=== PATIENT | male | born 1945 | race Caucasian/White ===

== ENCOUNTER 2024-12-20 08:19 | Observation (INO) ==
--- NOTE | 2024-11-14 15:39 | PAT Medication Instructions ---
Medication Instructions Date of Service November 14, 2024 Home Medications acetaminophen 650 mg tablet,extended release 650 mg PO UD PRN Pain albuterol sulfate 90 mcg/actuation aerosol inhaler 1 inh inhalation QID PRN Wheezing aspirin 81 mg tablet,delayed release 81 mg PO QAM atorvastatin 10 mg tablet 10 mg PO HS fluticasone 250 mcg-salmeterol 50 mcg/dose blistr powdr for inhalation (Advair Diskus) 1 inh inhalation BID lisinopril 40 mg tablet 40 mg PO QAM metoprolol succinate 25 mg tablet,extended release 24 hr 25 mg PO QAM tamsulosin 0.4 mg capsule 0.4 mg PO HS amlodipine 2.5 mg tablet 2.5 mg PO HS DO NOT take the morning of surgery lisinopril 40 mg tablet 40 mg PO QAM Take morning of surgery With a small sip of water, OTHERWISE NOTHING TO EAT OR DRINK AFTER MIDNIGHT: acetaminophen 650 mg tablet,extended release 650 mg PO UD PRN Pain (if needed) albuterol sulfate 90 mcg/actuation aerosol inhaler 1 inh inhalation QID PRN Wheezing (use if needed; please bring with you to hospital day of surgery if possible) aspirin 81 mg tablet,delayed release 81 mg PO QAM (unless surgeon directed otherwise) fluticasone 250 mcg-salmeterol 50 mcg/dose blistr powdr for inhalation (Advair Diskus) 1 inh inhalation BID metoprolol succinate 25 mg tablet,extended release 24 hr 25 mg PO QAM Take evening before surgery acetaminophen 650 mg tablet,extended release 650 mg PO UD PRN Pain (if needed) albuterol sulfate 90 mcg/actuation aerosol inhaler 1 inh inhalation QID PRN Wheezing (if needed) atorvastatin 10 mg tablet 10 mg PO HS fluticasone 250 mcg-salmeterol 50 mcg/dose blistr powdr for inhalation (Advair Diskus) 1 inh inhalation BID tamsulosin 0.4 mg capsule 0.4 mg PO HS amlodipine 2.5 mg tablet 2.5 mg PO HS Other Notes If you have any questions please call us at [phone] or [phone] or [phone] or [phone]
--- NOTE | 2024-11-29 14:46 | Anesthesiology Consultation ---
Date of Service November 29, 2024 Assessment & Plan (1) Encounter for pre-operative examination: - awaiting PCP (Dr. Mireles) response to optimization form regarding abnormal pre- op CXR. Patient and surgeon's office made aware. - cardiology clearance 11/28/24: "...nonobstructive coronary artery disease...denies any anginal complaints at this time...intermediate cardiovascular risk surgery...do not recommend further invasive or noninvasive cardiovascular testing or procedures prior to proceeding with planned shoulder surgery...well optimized from a cardiac standpoint to proceed with his scheduled procedure...recommend continuing beta silvana throughout the perioperative phase..." - hematology/oncology clearance 11/16/24: "...may proceed with shoulder surgery..." - Outpatient joint assessment: Patient is currently scheduled for inpatient pathway. If re-evaluated and patient/surgeon requests outpatient pathway, patient is not ideal candidate for outpatient joint program. Chart Review Chart Review: Pending: Refer to Additional Notes / Consult section and Patient seen in Pre Admission Testing Teaching & Discussion Pre-Anesthesia Teaching/Discussion Notes: Instructed NPO after midnight before surgery, except medications with 15 cc of water. Medication instructions provided according to the PAT guidelines. History Surgery Operation Date: 12/20/24 07:00 Proposed Procedures p Right Reverse Total Shoulder Arthroplasty - Mekhi Alarcon MD Height/Weight Height: 5 ft 7 in Weight: 79.5 kg Allergies Allergy/AdvReac Type Severity Reaction Status Date / Time No Known Allergies Allergy Verified 11/14/24 11:48 Medications Home Medications Medication Instructions Recorded Confirmed Last Taken acetaminophen 650 mg 650 mg PO UD PRN Pain 11/12/23 11/14/24 Unknown tablet,extended release albuterol sulfate 90 mcg/actuation 1 inh inhalation QID PRN Wheezing 11/12/23 11/14/24 Unknown aerosol inhaler aspirin 81 mg tablet,delayed 81 mg PO QAM 11/12/23 11/14/24 Unknown release atorvastatin 10 mg tablet 10 mg PO HS 11/12/23 11/14/24 Unknown fluticasone 250 mcg-salmeterol 50 1 inh inhalation BID 11/12/23 11/14/24 Unknown mcg/dose blistr powdr for inhalation (Advair Diskus) lisinopril 40 mg tablet 40 mg PO QAM 11/12/23 11/14/24 Unknown metoprolol succinate 25 mg 25 mg PO QAM 11/12/23 11/14/24 Unknown tablet,extended release 24 hr tamsulosin 0.4 mg capsule 0.4 mg PO HS 11/12/23 11/14/24 Unknown amlodipine 2.5 mg tablet 2.5 mg PO HS 11/14/24 11/14/24 Unknown Past Medical History Medical History (Updated 11/29/24 @ 15:35 by Vanesa Stevens PA-C) Arthritis Asthma BPH (benign prostatic hyperplasia) CAD (coronary artery disease) Stent x1 (2013) Chronic obstructive pulmonary disease controlled, stable per pt; denies rescue inhaler Hx of cancer of lung dx earlier in 2023, sx only Hyperlipidemia Hypertension Myocardial Infarction 2013 > stent Patient denies h/o stroke, seizures, heart failure, DM, blood clots/DVTs or blood transfusions. Exercise / Class Metabolic Activity II 4-5 Yardwork/Stairs/Walk up hill (denies chest discomfort or shortness of breath with one flight of stairs) Past Surgical History Surgical History History of arthroscopy right shoulder History of cataract surgery R/L History of colonoscopy History of heart artery stent Stent x1 (2013), ph gerry; f/u lorna, ph cardiology, gerry History of lung surgery 05/2024, partial lobectomy right side, [facility] hinds History of tooth extraction Past Anesthesia History No Hx of Anesthesia Complications and No Family Hx of Anesthesia Complications History of PONV No Hx of PONV and No Hx of Motion Sickness Social History Smoking Status: Former smoker Do You Dip or Chew Tobacco: No Smoking End Date: 25 years ago Hx Alcohol Use: Yes Alcohol type: beer alcohol intake frequency: a few times a week Hx Substance Use: No substance use type: does not use Review of Systems Patient denies chest pain, shortness of breath, dyspnea on exertion, snoring, witnessed apneas, reflux, fever, chills, cough, wheezing, or palpitations. Physical Exam Vital Signs Vitals BP 140/69 P 53 TEMP 98.4 SP02 96% on RA RESP 19 Physical Patient resting comfortably in chair in no acute distress, alert and oriented, responding appropriately throughout visit Full cervical extension range of motion without pain TMD 3.5 finger breadths Mallampati Score 3 Dentition: edentulous, full upper and lower dentures Lungs: normal respiratory effort. Good air movement, clear throughout to auscultation, no adventitious breath sounds Cardiac: regular rate and rhythm, no murmurs noted Carotid arteries: negative bruit bilat Lab Results Anesthesia Preop Results Results Anesthesia Widget: WBC 5.49 K/ul (4.8-10.8) 11/29/24 Hgb 15.0 g/dl (14.0-18.0) 11/29/24 Hct 43.5 % (42.0-52.0) 11/29/24 Plt 169 K/uL (130-400) 11/29/24 Na 141 mmol/L (136-145) 11/29/24 K 4.4 mmol/L (3.5-5.1) 11/29/24 Cl 105 mmol/L (98-107) 11/29/24 CO2 32 mmol/L (21-32) 11/29/24 BUN 14 mg/dl (6-23) 11/29/24 Creat 0.77 mg/dl (0.6-1.4) 11/29/24 Glucose Level 100 mg/dl (70-99(Fasting)) H 11/29/24 PT 10.8 Seconds (9.0-12.0) 11/29/24 PTT 25 Seconds (21-31) 11/29/24 INR 1.0 (0.9-1.1) 11/29/24 Urine Color Yellow 11/29/24 Urine Appearance Clear (Clear) 11/29/24 Urine pH 5.5 (4.5-7.5) 11/29/24 Urine Specific Jay Em 1.014 (1.000-1.030) 11/29/24 Urine Protein Negative (Negative) 11/29/24 Urine Glucose (UA) Negative (Negative) 11/29/24 Urine Ketones Negative (Negative) 11/29/24 Urine Blood Negative (Negative) 11/29/24 Urine Nitrite Negative (Negative) 11/29/24 Urine Bilirubin Negative (Negative) 11/29/24 Urine Urobilinogen Negative (Negative) 11/29/24 Urine Leukocyte Esterase Negative (Negative) 11/29/24 Blood Type A Positive 11/29/24 Antibody Screen NEGATIVE 11/29/24 Testing Electrocardiogram Date: 06/02/24 SR, rate 63 bpm Occasional PVC First degree AV block Chest X-Ray Date: 11/30/24 1. Minimal blunting of right costophrenic angle could represent pleural thickening / small effusion. Needs clinical correlation and ultrasound chest if indicated. 2. No evidence of infiltrates, consolidation or mass. Echocardiogram Date: 05/02/24 EF 60-65% Normal LV wall motion Grade I diastolic dysfunction Stress Test Date: 05/29/24 > 100% MPHR Positive for ischemia Subsequent 06/02/24 cardiac catheterization Cardiac Catheterization Date: 06/02/24 Minimal nonobstructive CAD Left main: no angiographically significant disease LAD: angiographically significant disease LCx: 30% lesion RCA: no angiographically significant disease Other Testing Thorax CT 11/13/24 Lesion of size 41 x 49 x 36 right lower lobe cavitary lesion with adacent focal pleural thickening. Reduce than prior. Mild right sided pleural effusion is seen. New than prior. A 14 mm sebaceous cyst in the left chest wall, benign.
--- NOTE | 2024-12-19 20:29 | History & Physical Report ---
Date of Service December 19, 2024 Assessment & Plan (1) Rotator cuff tear arthropathy of right shoulder: Plan: Advanced rotator cuff arthropathy [id number] subacromial and glenohumeral right shoulder. Treatment plan is to proceed with a reverse total shoulder arthroplasty. (2) Osteoarthritis of right glenohumeral joint: History of Present Illness Chief Complaint: Chronic right shoulder pain Primary Care Provider: Thor Mireles MD 79-year-old male with chronic progressive right shoulder pain due to rotator cuf f arthropathy and advanced glenohumeral osteoarthritis Patient denies headaches, sweats, fevers, chills, double vision, blurred vision, cough, sore throat, dysphagia, chest pain, sob, wheezing, n/v/d/c, numbness, tingling, fatigue, urinary symptoms, mood disorders. ROS positive for abnormal bruising but is on chronic aspirin, low back pain, lung CA Allergies Allergy/AdvReac Type Severity Reaction Status Date / Time No Known Allergies Allergy Verified 11/14/24 11:48 Home Medications Medication Instructions Recorded Confirmed Type acetaminophen 650 mg 650 mg PO UD PRN Pain 11/12/23 11/14/24 History tablet,extended release albuterol sulfate 90 mcg/actuation 1 inh inhalation QID PRN Wheezing 11/12/23 11/14/24 History aerosol inhaler aspirin 81 mg tablet,delayed 81 mg PO QAM 11/12/23 11/14/24 History release atorvastatin 10 mg tablet 10 mg PO HS 11/12/23 11/14/24 History fluticasone 250 mcg-salmeterol 50 1 inh inhalation BID 11/12/23 11/14/24 History mcg/dose blistr powdr for inhalation (Advair Diskus) lisinopril 40 mg tablet 40 mg PO QAM 11/12/23 11/14/24 History metoprolol succinate 25 mg 25 mg PO QAM 11/12/23 11/14/24 History tablet,extended release 24 hr tamsulosin 0.4 mg capsule 0.4 mg PO HS 11/12/23 11/14/24 History amlodipine 2.5 mg tablet 2.5 mg PO HS 11/14/24 11/14/24 History Past Med/Surg History Problem List (Updated 12/19/24 @ 20:34 by Mekhi Alarcon MD) 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 Beliefs That Will Affect Care: None Current Living Situation: Spouse Other Information That Helps Us Care for You: No Feels Safe at Home: Yes Safety Concerns: Feels Safe At This Time Assistive Devices: None Review of Systems All systems reviewed & are unremarkable except as noted in HPI & below Physical Exam Constitutional: WD/WN, vitals as above Respiratory: normal respiratory effort; no respiratory distress Cardiovascular: Rate/Rhythm: regular rate and regular rhythm Musculoskeletal: Right shoulder with atrophy abnormal rhythm crepitation with range of motion positive impingement signs limited range of motion with 40 degrees of external and internal rotation 80 degrees flexion 60 degrees abduction and 3+ 4-/5 abduction strength 4+/5 external rotation strength and normal neurological exam. Skin: no rashes, warm and dry Neurologic: normal touch/pain/proprioception Psychiatric: A+Ox3, euthymic affect Results & Data Diagnostic Findings Radiographs show [place] 4 end-stage rotator cuff arthropathy [id number] subacromial and glenohumeral.
[~2024-12-20 08:19] MED LIST: BUPIVACAINE 0.5 % 5 MG/1 ML PF 10ML VIAL ONE
[2024-12-20] MEDS ORDERED: ROCURONIUM BROMIDE 10 MG/ML 5 ML VIAL IV ONE (08:34)
[2024-12-20] MEDS ORDERED: PROPOFOL IV EMULSION 10 MG/ML 20 ML VIAL IV ONE (08:34)
[2024-12-20] MEDS ORDERED: LIDOCAINE 2% 20 MG/ML 5 ML SYR IV ONE (08:34)
[2024-12-20] MEDS ORDERED: MIDAZOLAM HCL 1 MG/ML 2ML VIAL ONE (08:34)
[2024-12-20] MEDS ORDERED: fentaNYL citrate PF 100 MCG/2 ML VIAL ONE (08:35)
[2024-12-20] MEDS: LR 15ML/HR IV SCH (08:59)
[2024-12-20] MEDS: LR 60ML/HR IV SCH (09:00)
[2024-12-20] MEDS: ACETAMINOPHEN 500 MG TAB PO SCH ×2 (09:01→15:54)
[2024-12-20] MEDS: METOCLOPRAMIDE HCL 10 MG TABLET PO SCH (09:01)
[2024-12-20] MEDS: FAMOTIDINE 20 MG TAB PO SCH (09:01)
[2024-12-20] MEDS: GABAPENTIN 300 MG CAP PO SCH (09:01)
[2024-12-20] MEDS: dexAMETHasone**PF** 10 MG/ML VIAL IV SCH (09:01)
[2024-12-20] MEDS: CeleBREX 200 MG CAP PO SCH (09:01)
[2024-12-20] MEDS ORDERED: fentaNYL citrate PF 100 MCG/2 ML VIAL IV PRN (09:21)
[2024-12-20] MEDS ORDERED: ONDANSETRON INJ 2 MG/ML 2 ML VIAL IV PRN ×2 (09:21→15:19)
[2024-12-20] MEDS ORDERED: ATROPINE SULFATE 0.1 MG/ML 10ML SYR IV PRN (09:21)
[2024-12-20] MEDS ORDERED: ePHEDrine sulfate 50 MG/ML AMP IV PRN (09:21)
[2024-12-20] MEDS: TRANEXAMIC ACID 1,000 MG **IV Pre-op IV SCH (10:07)
--- NOTE | 2024-12-20 10:14 | History & Physical Bridge Note ---
Date of Service December 20, 2024 History & Physical Bridge Note I have examined the patient, reviewed the History & Physical and in the interval since the performance of the History & Physical I have noted the following changes of clinical significance: no changes noted
[2024-12-20] MEDS ORDERED: GLYCOPYRROLATE 0.2 MG/ML VIAL ONE (10:29)
[2024-12-20] MEDS ORDERED: KETAMINE HCL 10MG/ML SYR ONE (10:33)
[2024-12-20] MEDS: ceFAZolin 2000MG 2,000 MG/15 ML SYR IV SCH ×2 (11:02→20:22)
[2024-12-20] MEDS ORDERED: ceFAZolin 330 MG/ML 1 GM VIAL ONE ×2 (11:03)
[2024-12-20] MEDS ORDERED: NOREPINEPHRINE BITARTRATE 1 MG/ML 4 ML VIAL IV ONE (11:04)
[2024-12-20] MEDS ORDERED: ONDANSETRON INJ 2 MG/ML 2 ML VIAL ONE (11:25)
[2024-12-20] MEDS ORDERED: DEXAMETHASONE SOD INJ 4 MG/ML VIAL ONE (11:25)
[2024-12-20] MEDS: TRANEXAMIC ACID 1,000 MG **IV Intra-op IV SCH (12:30)
[2024-12-20] MEDS ORDERED: SUGAMMADEX SODIUM 200 MG/2 ML VIAL IV ONE (12:51)
--- NOTE | 2024-12-20 13:20 | Operative Report ---
Post Operative Report Pre & Post Diagnosis Operation Date: 12/20/24 09:55 Pre-Op Diagnosis: Rotator cuff tear arthropathy of right shoulder, Osteoarthritis of right glenohumeral joint Post-Op Diagnosis: Rotator cuff tear arthropathy of right shoulder, Osteoarthritis of right glenohumeral joint with bone loss glenoid, subacute proximal biceps rupture. I identified the patient and participated in the time-out.: Yes Procedure Operation Date: 12/20/24 09:55 Actual Procedures p Right Reverse Total Shoulder Arthroplasty, biceps tenodesis. - Mekhi bassett MD Surgeon Mekhi Alarcon MD Mail Agent Bernard HILARIO Estimated Blood Loss 45 Findings Consistent with Post-Op Diagnosis Specimens Humeral head cut Drains 2 Hemovac Anesthesia Type General Regional Complications none Disposition Disposition: Recovery Room Indications 79-year-old male with chronic right shoulder pain history of surgery years ago with rotator cuff arthropathy chronic rotator cuff tear [place] stage IV [id number] glenohumeral joint and subacromial space. Description of Procedure The patient was taken to the operating room and anesthetized under regional block and general anesthetic. The patient was positioned on the operating table in a 30 beach chair position with a towel roll under the medial border of the right scapula. The arm was draped free to be able to manipulate the shoulder as needed. The right upper extremity was prepped and draped in usual sterile fashion. Exam demonstrated a transverse scar over the AC joint acromion area. Generalized subdeltoid swelling cyst with chronic bursitis. Crepitation with range of motion. Forward flexion 120 degrees, abduction to 90 degrees and external rotation 45 degrees. An anterior deltopectoral approach was performed. A longitudinal incision was made in the deltopectoral interval. The skin was incised sharply. Subcutaneous flaps were elevated off the fascia. The cephalic vein was dissected out and retracted lateral with the deltoid. The clavipectoral fascia was divided at the lateral margin of the conjoined tendon and extended up to the CA ligament. The following findings were noted: The subscapularis was thin with tendinopathy but still was intact but there was some undersurface upper aspect tearing. The supraspinatus ,infraspinatus were torn and retracted and the teres minor was intact. The upper centimeter of the pectoralis was released for inferior exposure. The biceps tendon findings demonstrated there was some hemorrhage in the biceps sheath with a markedly inflamed biceps sheath in the bulbous and of the biceps which was torn and there was still some tendon above the level of the pectoralis insertion consistent with a subacute biceps rupture. The inflamed tendon sheath was resected around the biceps and an Allis clamp was placed and it was retracted superiorly and then the biceps tendon was tenodesed to the pectoralis tendon with #2 FiberWire using [id number] and whipstitch type suture repair repairing this to the pectoralis tendon. The excess superior biceps was resected. The subscapularis tendon was taken down off the lesser tuberosity using a subperiosteal dissection. A #1 Vicryl traction suture was placed into the free end of the subscapularis tendon and capsule. The subscapular muscle fibers were split longitudinally at the level of the circumflex vessels. The circumflex vessels were identified and tied off with silk ties and divided laterally. A Kitner elevator was used to free up the inferior fibers of the subscapularis off of the capsule. The axillary nerve was identified with a tug test and protected with a blunt Cady retractor between the nerve and the capsule. The subscapularis tendon was then taken down off of the lesser tuberosity subperiosteally and subperiosteal dissection was performed along the neck of the humerus as the arm is gradually actually rotated exposing the humeral head. Retractors were readjusted and the inferior osteophytes were all resected using an artist chisel. A Velázquez elevator was used to assist in releasing the capsule of the neck of the humerus. The capsule was divided with Ji scissors down to the glenoid released off the anterior glenoid and the rotator interval was released to meet the capsular release and a 360 release of the subscapularis was accomplished. A Fukuda retractor was placed into the joint retracting the humeral head posterior. Glenoid findings demonstrated widened glenoid with osteophytes circumferentially with glenoid bone loss with eburnated bone and multiple subchondral cysts consistent with degenerative arthritis. There is posterior superior bone loss noted as noted on CT scan.. The labrum remnants were resected.. an anterior-inferior and posterior inferior capsular release were performed with electrocautery and a Velázquez elevator on bone with the axillary nerve protected inferiorly by the retractor. Attention was then taken to the humeral preparation. The cutting guide was placed into the humeral head. It was positioned at 20 of retroversion. Oscillating saw was used to resect the humeral head giving the cut above the level of the posterior rotator cuff insertion site. The humerus was then prepared for the stem. I used the ascend flex stem from [employer]. The sizing broaches were used followed by trial broaches up to a size 7B long which had the appropriate fit and fill. The appropriate sized cut protector was placed. The humerus was then retracted posterior to the glenoid. The glenoid was sized for a 29 baseplate and based on blueprint preoperative templating and custom guide this was planned for a full wedge 15 degree angle implant. The custom guide was inserted in appropriate position and then the central guidepin was placed with good purchase in the bone. The small surface reamer utilized followed by the 15 degree angled reamer positioned with the maximum wedge being placed at the 11 o'clock position. The reamer for the central boss was used. The trial weight guide was placed with satisfactory fit and the central drill hole was placed for the screw. The depth gauge was used to measure for the central screw. The [employer], Tornier 29 mm full wedge 15 degree baseplate with a 6.5 x 35 mm central screw was screwed into position. The base plate was transfixed with a compression screw near the wedge and then 3 other locking screws. Bone was very hard and excellent fixation was obtained. The fan reamer was used for the 42 millimeter glenoid sphere. After irrigation the centered 42 mm standard glenoid sphere was impacted onto the baseplate and the screw was tightened. Attention was taken back to the humerus. The cut protector was removed and the + high offset humeral tray trial was assembled to the trial stem rotated appropriately to get bony coverage and then screwed in position. A trial reduction was performed. A +6/42 reversed trial insert demonstrated good stability and no shuck. The trials were removed. 3 drill holes are made into the harder bone in the bicipital groove area and 3 #5 FiberWire sutures were placed transosseously. The canal was irrigated with pulsatile lavage saline solution. The final component was assembled. The final component was ascend Flex 7B long standing assemble 2+0 high offset tray with a 42 mm +6 mm reversed polyethylene insert. This was then impacted into the humerus with a tight press-fit. It was reduced to the glenoid sphere. Stability was verified. Subscapularis was repaired with the #5 FiberWire sutures using Shay-Corona suture technique. Lateral row soft tissue repair was performed with #2 FiberWire [id number] sutures. The pectoralis was repaired with #2 FiberWire [id number] sutures reinforcing the biceps tendon tenodesis. The arm was taken through a range of motion which demonstrated 135 degrees forward flexion and 90 degrees abduction and 60 degrees external rotation. The implant was stable through the range of motion tested. The wound was copiously irrigated. 2 Hemovac drains were placed. The deltopectoral interval was closed with [id number] #1 Vicryl sutures. The subcutaneous tissues were closed with 2-0 Vicryl sutures. The skin was closed with surgical kelli. Silverlon sterile dressing was applied and a shoulder immobilizer. Bernard HILARIO, my physician corporate law assistant assisted in the procedure to the entire procedure including patient positioning arm positioning prepping and draping soft tissue retraction instrument management suture management and performed the subcutaneous and skin closure and will participate in the postoperative care of the patient. I attest to the content of the Intraoperative Record and any orders documented therein. Any exceptions are noted below.
--- NOTE | 2024-12-20 13:38 | XRay Report ---
XR shoulder RT min 2V routine CLINICAL HISTORY: Post shoulder surgery COMPARISON: None FINDINGS: Right shoulder prosthesis shows no hardware complication. There is expected soft tissue ga s. Skin kelli are present. Postoperative drain is present. IMPRESSION: Unremarkable postoperative exam. ACT 112: Negative or not required by law. Electronically signed by: Syed Townsend M.D. 12/20/2024 1:37 PM
[2024-12-20] MEDS ORDERED: ALUMINUM/MAGNESIUM SUSP 30 ML UDC PO PRN (15:19)
[2024-12-20] MEDS ORDERED: ALBUTEROL HFA 8 GM INHALER INH PRN (15:19)
[2024-12-20] MEDS ORDERED: MAGNESIUM HYDROXIDE SUSP 30 ML UDC PO PRN (15:19)
[2024-12-20] MEDS ORDERED: METOCLOPRAMIDE HCL INJ 5 MG/ML 2 ML VIAL IV PRN (15:19)
[2024-12-20] MEDS ORDERED: bisacodyL 10 MG SUPP PR PRN (15:19)
[2024-12-20] MEDS ORDERED: NALOXONE HCL 0.4 MG/1 ML VIAL/CARP IV PRN (15:19)
[2024-12-20] MEDS ORDERED: HYDROmorphone INJ 0.5 MG/0.5 ML SYR IV PRN (15:19)
[2024-12-20] MEDS ORDERED: KETOROLAC TROMETHAMINE 15 MG/ML VIAL IV PRN (15:19)
[2024-12-20] MEDS: BUPIVACAINE LIPOSOME 1.3% 133 MG/10 ML VIAL ONE (15:22)
--- NOTE | 2024-12-20 15:31 | Anesthesiology Progress Note ---
Date of Service December 20, 2024 Anesthesia Post Procedure Vital Signs Vital Signs: Temp Pulse Pulse Pulse Resp BP Pulse Ox 12/20/24 15:00 36.6 C 57 L 17 143/74 H 93 12/20/24 14:59 68 12/20/24 14:30 65 16 124/86 92 12/20/24 14:20 66 15 128/67 92 12/20/24 14:10 64 14 124/62 92 12/20/24 14:00 36.4 C L 65 15 127/66 96 12/20/24 13:50 65 15 127/66 96 12/20/24 13:40 66 18 132/69 97 12/20/24 13:30 67 15 134/63 97 12/20/24 13:22 36.1 C L 67 20 124/60 99 12/20/24 08:55 12/20/24 08:40 36.5 C 58 L 20 145/72 H 98 O2 Del Method O2 Flow Rate 12/20/24 15:00 Room Air 12/20/24 14:59 12/20/24 14:30 Room Air 12/20/24 14:20 Room Air 12/20/24 14:10 Room Air 12/20/24 14:00 Room Air 12/20/24 13:50 Oxymask 3 12/20/24 13:40 Oxymask 3 12/20/24 13:30 Oxymask 7 12/20/24 13:22 Oxymask 7 12/20/24 08:55 Room Air 12/20/24 08:40 Room Air Pain Intensity Right Shoulder: Pain Intensity: 5 Transfer of Care Handoff Completed per policy Notes Mental Status: alert / awake / arousable Patient Amnestic to Procedure: Yes Nausea / Vomiting: adequately controlled Pain: adequately controlled Airway Patency, RR, SpO2: stable & adequate BP & HR: stable & adequate and see Notes below Hydration State: stable & adequate Anesthetic Complications: no major complications apparent Notes: pt with high PVC burden and asymptomatic bradycardia ~35 pre and intraop. resolved with treatment. will observe in tele unit post op
--- NOTE | 2024-12-20 15:32 | Hospitalist Consultation ---
Date of Consultation December 20, 2024 Assessment & Plan (1) Osteoarthritis of right glenohumeral joint: Jani Spence is a 79-year-old male with a past medical history of CAD with PCI, hyperlipidemia, hypertension who underwent scheduled right reverse total shoulder arthroplasty on 12/20/2024 for rotator cuff tear. We have been consulted for postoperative medication management. S/p reverse shoulder arthroplasty - No surgical complications Activity, pain management per primary team Continue incentive spirometer everyevery 4 hours Some lip numbness postoperatively. Right hand is with sensation and rn office strength intact although qualitatively decreased compared to the left, is recovering as would typically expect postoperatively. No other focal neurologic deficits. Speech is intact. Bradycardia, Bigeminy - Asymptomatic. No chest pain. Asymptomatic. Tele w/ ermaeminy reporting a rate of 80, pulse rate 40. Normotensive and no lightheadedness/dizziness/chest pain Cath 05/2024 without obstructive coronary disease. No chest pain and no clinical signs of preoperative ACS ? Post anesthesia. Continue to monitor. If symptomatic hypotension develops atropine 0.5 mg x 1 and notify provider for reassessment -Did not have any intraoperative hypotension Troponin x 1 ordered. Serial EKG ordered. Optimize magnesium 2.0, potassium 4.0. BMP/magnesium ordered - Resume metoprolol in a.m. versus dose reduce/hold if needed based on rate trend. Rate is improving on reassessment in the later evening CAD, history of PCI Last ECHO EF 60 to 65% History of PCI 2013 to LAD Cardiac cath 2023 with minimal nonobstructive coronary disease Continue aspirin, atorvastatin. Beta-silvana as noted Resume lisinopril 12/21 No hypoxia, no dyspnea, no JVD at the bedside Hypertension Continue lisinopril Metoprolol as noted BPH Continue Flomax. Bladder scan every shift if no/reduced urinary output COPD, history of lung cancer Lung cancer s/p wedge resection with no known residual disease Continue home inhalers No wheezing at bedside evaluation Continue incentive spirometer to minimize atelectasis. DVT prophylaxis: On aspirin twice daily per primary team. (2) CAD (coronary artery disease): (3) BPH (benign prostatic hyperplasia): (4) Hypertension: (5) Chronic obstructive pulmonary disease: History of Present Illness Attending Physician: Mekhi Alarcon MD History of Present Illness 79-year-old male with a history of CAD and PCI in 2013, lung cancer s/p wedge resection 1 year ago, COPD on Advair who presented for scheduled right total shoulder arthroplasty. Intraoperatively he had bigeminy and bradycardia. We have been consulted for postoperative management and for evaluation of bradycardia. At bedside he reports he has no chest pain, chest pressure, lightheadedness, dizziness. No dyspnea. No cough. His lips and tongue are slightly numb since waking up from anesthesia. His right hand and arm are numb however he notes that since arriving to the floor he has had improving strength and sensation of the right upper extremity. Drain is in place. Blood pressure is normal Reports his metoprolol was recently dose decreased for a slow heart rate, he has never been symptomatic with this and his blood pressures have never been low Medical History: Reviewed Medications: Reviewed Surgical History: Reviewed Family history: Reviewed Allergies: Reviewed Social History: Reviewed Code Status: Full Allergies Allergy/AdvReac Type Severity Reaction Status Date / Time No Known Allergies Allergy Verified 12/20/24 08:40 Home Medications Medication Instructions Recorded Confirmed Type acetaminophen 650 mg 650 mg PO UD PRN Pain 11/12/23 12/20/24 History tablet,extended release albuterol sulfate 90 mcg/actuation 1 inh inhalation QID PRN Wheezing 11/12/23 12/20/24 History aerosol inhaler aspirin 81 mg tablet,delayed 81 mg PO QAM 11/12/23 12/20/24 History release atorvastatin 10 mg tablet 10 mg PO HS 11/12/23 12/20/24 History fluticasone 250 mcg-salmeterol 50 1 inh inhalation BID 11/12/23 12/20/24 History mcg/dose blistr powdr for inhalation (Advair Diskus) lisinopril 40 mg tablet 40 mg PO QAM 11/12/23 12/20/24 History metoprolol succinate 25 mg 25 mg PO QAM 11/12/23 12/20/24 History tablet,extended release 24 hr tamsulosin 0.4 mg capsule 0.4 mg PO HS 11/12/23 12/20/24 History amlodipine 2.5 mg tablet 2.5 mg PO HS 11/14/24 12/20/24 History acetaminophen 500 mg tablet 1,000 mg (2 x 500 mg) PO Q8H #90 12/20/24 Rx (Tylenol Extra Strength) tabs aspirin 81 mg tablet,delayed 81 mg PO BID #60 tabs 12/20/24 Rx release cefadroxil 500 mg capsule 500 mg PO Q12H #28 caps 12/20/24 Rx celecoxib 200 mg capsule (Celebrex) 200 mg PO Q12H #60 caps 12/20/24 Rx oxycodone 5 mg tablet 5 mg PO Q4H PRN pain #20 tabs 12/20/24 Rx Patient History Medical History Hx of cancer of lung dx earlier in 2023, sx only CAD (coronary artery disease) Stent x1 (2013) Arthritis BPH (benign prostatic hyperplasia) Myocardial Infarction 2013 > stent Hypertension Hyperlipidemia Chronic obstructive pulmonary disease controlled, stable per pt; denies rescue inhaler Asthma Surgical History History of lung surgery 05/2024, partial lobectomy right side, [facility] hinds History of cataract surgery R/L History of colonoscopy History of tooth extraction History of arthroscopy right shoulder History of heart artery stent Stent x1 (2013), ph gerry; [facility] Social History Smoking Status: Former smoker Smoking End Date: 25 years ago; Second Hand Exposure: No; Do You Dip or Chew Tobacco: No; Tobacco Cessation Education Requested by Patient: No Hx Alcohol Use: Yes Alcohol type: beer Hx Substance Use: No Preferred Language: French Communication Ability: Effective Assisted Living Director Required: No Beliefs That Will Affect Care: None Current Living Situation: Spouse Other Information That Helps Us Care for You: No Feels Safe at Home: Yes Safety Concerns: Feels Safe At This Time Assistive Devices: None Physical Exam Physical Exam: General: A&Ox3. NAD. Cooperative. HEENT: Atraumatic, normocephalic. Somewhat soft speech, endorses numbness/tingling of the lips and tongue since waking up from anesthesia. vision and hearing grossly intact. Pulm: CTAB A&P. -wheezes, -rales, -rhonchi. Symmetrical chest rise. No increased work of breathing. No respiratory distress. Cardiac: Bradycardic with chronotropic response, soft SM radial pulses intact and symmetrical. Abdominal: Nontender, nondistended, soft. BS present. Extremities: Right shoulder in postop dressing, drain in place with sanguinous material. Hydrochloric Manufacturing Supervisor strength is slightly weaker compared to the left, sensation slightly decreased compared to the left but intact and improving postop. Radial pulse intact bilaterally Results & Data Results & Data Vital Signs (Past 12 Hours) Vital Signs Temp Pulse Pulse Pulse Resp BP Pulse Ox 12/20/24 15:00 36.6 C 57 L 17 143/74 H 93 12/20/24 14:59 68 12/20/24 14:30 65 16 124/86 92 12/20/24 14:20 66 15 128/67 92 12/20/24 14:10 64 14 124/62 92 12/20/24 14:00 36.4 C L 65 15 127/66 96 12/20/24 13:50 65 15 127/66 96 12/20/24 13:40 66 18 132/69 97 12/20/24 13:30 67 15 134/63 97 12/20/24 13:22 36.1 C L 67 20 124/60 99 12/20/24 08:55 12/20/24 08:40 36.5 C 58 L 20 145/72 H 98 O2 Del Method O2 Flow Rate 12/20/24 15:00 Room Air 12/20/24 14:59 12/20/24 14:30 Room Air 12/20/24 14:20 Room Air 12/20/24 14:10 Room Air 12/20/24 14:00 Room Air 12/20/24 13:50 Oxymask 3 12/20/24 13:40 Oxymask 3 12/20/24 13:30 Oxymask 7 12/20/24 13:22 Oxymask 7 12/20/24 08:55 Room Air 12/20/24 08:40 Room Air PG Care Time/CCT Total # of Minutes Spent Total Time Spent with Patient: Total time spent is greater than 50% in coordination of care (as documented) at patient's floor/unit and/or counseling patient: Coding Level of Care Code 31707 IN/OBS CONSULT LVL 4,60M Diagnoses Osteoarthritis of right glenohumeral joint M19.011 CAD (coronary artery disease) I25.10 BPH (benign prostatic hyperplasia) N40.0 Hypertension I10 Chronic obstructive pulmonary disease J44.9
[2024-12-20 17:37] LABS: BUN Creatinine Ratio 28.2 (10-20); Calcium 8.2 mg/dl (8.6-10.3); Creatinine Clr Calc Pharmacy 45.1 ml/min; Magnesium 1.6 mg/dl (1.7-2.4); Potassium 4.2 mmol/L (3.5-5.1)
[2024-12-20 17:44] LABS: Troponin I High Sensitivity 7.9 pg/ml (0-20)
[2024-12-20] MEDS: TRANEXAMIC ACID / 0.7% NACL 1,000 MG/100 ML BAG IV SCH (19:46)
[2024-12-20] MEDS: MAGNESIUM SULFATE / D5W 1 GM/100 ML BAG IV SCH (20:22)
[2024-12-20] MEDS: ASPIRIN 81 MG ECTAB PO SCH (21:47)
[2024-12-20] MEDS: SENNA 8.6 MG TAB PO SCH (21:47)
[2024-12-20] MEDS: TAMSULOSIN HCL 0.4 MG CAP PO SCH (21:47)
[2024-12-20] MEDS: ATORVASTATIN 10 MG TAB PO SCH (21:47)
[2024-12-20] MEDS: DOCUSATE SODIUM 100 MG CAP PO SCH (21:47)
[2024-12-20] MEDS: amLODIPine BESYLATE 5 MG TAB PO SCH (21:48)
[2024-12-21 06:56] LABS: Basophils # (auto) 0.01 K/uL (0.00-0.20); Basophils % (auto) 0.1 %; Hematocrit (blood only) 37.1 % (42.0-52.0); Hemoglobin 12.7 g/dl (14.0-18.0); Immature Granulocytes # (auto) 0.03 K/uL (0.01-0.20); Immature Granulocytes % (auto) 0.3 %; Lymphocytes # (auto) 1.02 K/uL (1.20-3.40); Mean Corpuscular Hemoglobin 31.4 pg (25.0-34.0); Mean Corpuscular Hgb Conc 34.2 g/dL (32.0-36.0); Mean Corpuscular Volume 91.8 fL (80.0-100.0); Mean Platelet Volume 10.9 fL (9.4-12.4); Monocytes # (auto) 0.59 K/uL (0.11-0.59); Monocytes % (auto) 5.8 %; Neutrophils # (auto) 8.54 K/uL (1.40-6.50); Neutrophils % (auto) 83.8 %; Platelet Count 177 K/uL (130-400); RDW Coefficient of Variation 12.2 % (11.5-14.5); RDW Standard Deviation 40.9 fL (36.4-46.3); Red Blood Count 4.04 M/uL (4.70-6.10); White Blood Count 10.19 K/ul (4.8-10.8)
[2024-12-21 07:16] LABS: BUN Creatinine Ratio 22.3 (10-20); Calcium 8.5 mg/dl (8.6-10.3); Creatinine Clr Calc Pharmacy 34.1 ml/min; Potassium 4.2 mmol/L (3.5-5.1)
--- NOTE | 2024-12-21 08:07 | Orthopedic Progress Note ---
Date of Service December 21, 2024 Assessment & Plan (1) Rotator cuff tear arthropathy of right shoulder: Plan: Postop day 1 reverse shoulder replacement. Some heart rhythm issues but appears to be stable. Will have medicine weigh in on heart rhythm issue. Has some mild hypertension this morning. From orthopedic standpoint he can be discharged home and will have him do some home exercises for a few weeks and then start formal physical therapy afterwards. Patient needs to see OT PT prior to discharge. Advanced rotator cuff arthropathy [id number] subacromial and glenohumeral right shoulder. Treatment plan is to proceed with a reverse total shoulder ar throplasty. (2) Osteoarthritis of right glenohumeral joint: Admission and Anticipated Discharge Date Admission Date: December 20, 2024 Subjective Feels well no complaints no chest pain shortness of breath. Review of Systems Review of Systems: No chest pain shortness of breath. Physical Exam Musculoskeletal: Dressing dry and intact. Circulation sensorimotor exam intact. Shoulder stable to exam. Results & Data Vital Signs (Past 12 Hours) Vital Signs Temp Pulse Pulse Resp BP Pulse Ox O2 Del Method 12/21/24 07:34 36.7 C 50 L 18 161/71 H 95 Room Air 12/21/24 04:34 87 12/21/24 03:32 36.6 C 44 L 18 148/68 H 92 Room Air 12/21/24 00:14 Room Air 12/20/24 22:19 83 12/20/24 22:11 36.8 C 95 H 18 157/76 H 93 Room Air Laboratory Results Stable labs troponin normal Diagnostic Findings Well aligned reverse shoulder replacement right shoulder
[2024-12-21] MEDS: MULTIVITAMIN TAB PO SCH (08:27)
[2024-12-21] MEDS: METOPROLOL SUCC 25MG EXT REL TAB PO SCH (08:28)
[2024-12-21] MEDS: lisinopril 40 MG TAB PO SCH (08:28)
[2024-12-21] MEDS: MAGNESIUM OXIDE 400 MG TAB PO SCH (08:30)
[2024-12-21] MEDS: FLUTICASONE/VILANTEROL 100/25MCG 14 PUFFS/INHALER INH SCH (08:32)
[2024-12-21] MEDS: dexAMETHasone 10 MG in SYRINGE 0 ML IV SCH (10:32)
[2024-12-21] MEDS: METOPROLOL SUCC 25MG EXT REL TAB PO ONE (10:42)
--- NOTE | 2024-12-21 12:11 | Electrocardiogram Report ---
Test Reason : Blood Pressure : */* mmHG Vent. Rate : 72 BPM Atrial Rate : 72 BPM P-R Int : 220 ms QRS Dur : 86 ms QT Int : 386 ms P-R-T Axes : 19 -6 -82 degrees QTcB Int : 422 ms Sinus rhythm with sinus arrhythmia with 1st degree A-V block with occasional Premature ventricular co mplexes Nonspecific ST and T wave abnormality Abnormal ECG When compared with ECG of 19-Nov-2023 14:54, Premature ventricular complexes are now Present Premature atrial complexes are no longer Present Nonspecific T wave abnormality now evident in Lateral leads Confirmed by Thomas Garner ([id number]) on 12/21/2024 12:11:16 PM Referred By: Mekhi Alarcon Confirmed By: Thomas Garner
--- NOTE | 2024-12-21 15:35 | Hospitalist Progress Note ---
Date of Service December 21, 2024 Assessment & Plan (1) Frequent PVCs: (2) BPH (benign prostatic hyperplasia): (3) Osteoarthritis of right glenohumeral joint: (4) Hypertension: Plan Jani Spence is a 79-year-old male with a past medical history of CAD with LAD stent, HLD, HTN, COPD, BPH who underwent right reverse total shoulder arthroplasty on 12/20/2024. Hospitalist service consulted for postoperative medical management but pt also having bradycardia. #Bradycardia/Bigeminy- Asymptomatic. Tele w/ ermaeminy reporting a rate of 80, pulse rate 40 on Dynamap during routine vitals. Normotensive and no lightheadedness/dizziness/chest pain. His true HR is normal and there are no concerns. ECG with PVCs, normal rate, no ischemic changes, troponin neg x 1. -cancelled Cardiology consult after discussion with Cardiology-no concerns -pt is supposed to be Toprol XL 12.5mg po daily-changed med for here and for home med list #CAD, history of PCINo acute issues. Troponin normal. Last ECHO EF 60 to 65% History of stent 2013 to LAD Cardiac cath 2023 with minimal nonobstructive coronary disease Continue aspirin, atorvastatin. Beta-silvana as noted continue lisinopril #Hypertension-BPs controlled Continue lisinopril Metoprolol as noted #BPH-having urinary retention requiring 2 straight caths overnight. Not taking opioids, could be from anesthesia Continue Flomax -if continues to have PVR>400mL, would place Jones x 1 week to go home with and f/u with Urology #COPD, history of lung cancer Lung cancer s/p wedge resection with no known residual disease Continue home inhalers No wheezing at bedside evaluation Continue incentive spirometer to minimize atelectasis. #S/p reverse shoulder arthroplasty - No surgical complications Activity, pain management per primary team DVT prophylaxis: On aspirin twice daily per primary team. Dispo-medically stable for discharge. Hospitalist service will sign off Admission and Anticipated Discharge Date Admission Date: December 20, 2024 Subjective Pt feels well. Was straight cathed overnight x 2 but is voiding today, repeat PVR bladder scan pending. Denies lightheadedness, CP, SOB. Pain in shoulder is controlled, not even taking tylenol. Daughters at bedside note he is a bit confused today-seeing people and things that aren't there. Pt oriented for me. I discussed his care with Cardiology who reviewed tele and has frequent PVCs, bigeminy and rates 70-80s. HR in the 40s on Dynamap not picking up PVCs. Physical Exam Constitutional: WD/WN, vitals as above Respiratory: normal respiratory effort, lungs clear to auscultation Cardiovascular: RRR, no murmur, no edema Musculoskeletal: Extremities: + extremities abnormal to inspection (RUE in sling) Psychiatric: A+Ox3, euthymic affect Results & Data Results & Data Vital Signs (Past 12 Hours) Vital Signs Temp Pulse Pulse Pulse Resp BP Pulse Ox 12/21/24 13:29 90 12/21/24 10:40 75 130/75 92 12/21/24 08:25 36.4 C L 46 L 42 L 16 162/66 H 93 12/21/24 07:34 36.7 C 50 L 18 161/71 H 95 12/21/24 04:34 87 12/21/24 03:32 36.6 C 44 L 18 148/68 H 92 O2 Del Method 12/21/24 13:29 12/21/24 10:40 Room Air 12/21/24 08:25 Room Air 12/21/24 07:34 Room Air 12/21/24 04:34 12/21/24 03:32 Room Air Laboratory Results CBC, BMP reviewed PG Care Time/CCT Total # of Minutes Spent Total Time Spent with Patient: Total time spent is greater than 50% in coordination of care (as documented) at patient's floor/unit and/or counseling patient: Coding Level of Care Code 60422 SUB INP/OBS CARE 2/35MIN Diagnoses Frequent PVCs I49.3 BPH (benign prostatic hyperplasia) N40.0 Osteoarthritis of right glenohumeral joint M19.011 Hypertension I10
[2024-12-21] MEDS: oxyCODONE HCL IR 5 MG TAB (IMMEDIATE RELEASE) PO PRN (21:02)
[2024-12-22] MEDS: diphenhydrAMINE Capsule 25 MG CAP PO PRN (03:24)
[2024-12-22 07:57] VITALS: RESP 18; O2SAT 93
[2024-12-22] MEDS: METOPROLOL SUCC 25MG EXT REL TAB PO SCH (08:06)
--- NOTE | 2024-12-22 09:47 | Orthopedic Progress Note ---
Date of Service December 22, 2024 Assessment & Plan (1) Rotator cuff tear arthropathy of right shoulder: Plan: Postop day 2 status post right reverse shoulder replacement. Some heart rhythm issues but appears to be stable. Will have medicine weigh in on heart rhythm issue. Has some mild hypertension this morning. Formal physical therapy will begin after his 2-week follow-up appointment. Continue as needed dressing changes over the incision and skin tears. From an orthopedic standpoint, the patient will be able to be discharged today. (2) Osteoarthritis of right glenohumeral joint: Admission and Anticipated Discharge Date Admission Date: December 20, 2024 Subjective Patient states that the pain in the right shoulder is controlled. Most of his pain is from the skin around the incision from the dressing change. No shoulder complaints today. Physical Exam Constitutional: WD/WN, vitals as above no acute distress (Lying comfortably in bed.) Musculoskeletal: Shoulder: + surgical incision (Right shoulder dressing C/D/I); no skin erythema and no surgical drain present Neurologic: normal touch/pain/proprioception Psychiatric: A+Ox3, euthymic affect Speech: normal rate/rhythm/volume of speech Results & Data Vital Signs (Past 12 Hours) Vital Signs Temp Pulse Pulse Resp BP Pulse Ox O2 Del Method 12/22/24 07:50 Room Air 12/22/24 06:00 36.4 C L 73 18 145/70 H 93 Room Air 12/22/24 03:55 68 12/22/24 02:57 36.4 C L 53 L 16 146/72 H 96 Room Air 12/21/24 22:18 36.7 C 65 16 127/75 95 Room Air 12/21/24 22:18 Room Air
[2024-12-22 12:18] VITALS: BP 104/61; PULSE 63; TEMP 97.9
--- NOTE | 2024-12-22 12:44 | Communication Note ---
Date of Service: December 22, 2024 Hospitalist service reconsulted for urinary retention. I discussed his care with SULAIMAN Somers. I already ordered a Jnoes catheter last evening which w as placed for large volume of urine after he had a PVR of 677 mL. He had already required 2 straight caths prior to that. I asked out Nurse Navigator to arrange outpt Urology follow up for trial of void in 1-2 weeks. He is already on Flomax. Advised Ortho to touch base with Urology. Hospitalist consult cancelled
--- NOTE | 2024-12-27 09:39 | Discharge Summary ---
Date of Service December 27, 2024 Admission HPI Per Admitting Provider 79-year-old male with chronic progressive right shoulder pain due to rotator cuff arthropathy and advanced glenohumeral osteoarthritis Patient denies headaches, sweats, fevers, chills, double vision, blurred vision, cough, sore throat, dysphagia, chest pain, sob, wheezing, n/v/d/c, numbness, tingling, fatigue, urinary symptoms, mood disorders. ROS positive for abnormal bruising but is on chronic aspirin, low back pain, lung CA Principal Diagnosis Right shoulder osteoarthritis Discharge Exam Constitutional WD/WN, vitals as above no acute distress (Lying comfortably in bed.) Musculoskeletal Shoulder: + surgical incision (Right shoulder dressing C/D/I); no skin erythema and no surgical drain present Neurologic normal touch/pain/proprioception Psychiatric A+Ox3, euthymic affect Speech: normal rate/rhythm/volume of speech Discharge Data Allergies Allergy/AdvReac Type Severity Reaction Status Date / Time No Known Allergies Allergy Verified 12/20/24 08:40 Consultations 12/19/24 09:09 Consult Hospitalist Routine Procedures Performed Operation Date: 12/20/24 09:55 Actual Procedures p Right Reverse Total Shoulder Arthroplasty(Right) - Mekhi Alarcon MD Ordered Studies 12/20/24 05:00 US - OR guided needle placemen Routine Hospital Course (1) Rotator cuff tear arthropathy of right shoulder: Postop day 2 status post right reverse shoulder replacement. Some heart rhythm issues but appears to be stable. Will have medicine weigh in on heart rhythm issue. Has some mild hypertension this morning. Formal physical therapy will begin after his 2-week follow-up appointment. Continue as needed dressing changes over the incision and skin tears. From an orthopedic standpoint, the patient will be able to be discharged today. Total Time Total Time Spent Total Time Spent (In Minutes): 30 Discharge Plan Discharge Items Patient Disposition: Home - Home Health Services Reason For Visit: Right Shoulder Osteoarthritis Discharge Diagnosis: Right shoulder osteoarthritis Activity: Per Instructions section Non-emergency contact: Primary Care Provider and Surgeon Call non-emergency contact if: your pain is not controlled, your pain is worsening and your temperature is above 101 Follow-up/Referrals: Drea Townsend CRNP [Nurse Practitioner] - (Office will reach out to schedule ) Thor Mireles MD [Primary Care Provider] - Diet: Regular Addtl Attending Provider Instructions: ACTIVITY RECOMMENDATIONS: SELF CARE INSTRUCTIONS AFTER TOTAL SHOULDER ARTHROPLASTY REVERSE A. You may do daily exercises as taught in physical therapy while in hospital. No lifting with the operative arm. B. You are to wear your sling/immobilizer at all times EXCEPT when performing your daily exercises and for hygiene purposes. C. You may perform dry, daily dressing changes. Please keep your incision covered. You may shower 48 hours after surgery. Do not apply soap or any ointment/lotions directly over incision. Do not soak incision in bath tub/swimming pool. D. You may use ice as needed to operative shoulder. E. You may resume previous diet. F. A physical therapy prescription and home exercises was placed in your chart to be with your discharge instructions. You may do the home exercises on your own until you are scheduled with physical therapy. Your physical therapist will use the [facility] reverse total shoulder arthroplasty protocol. G. Hemovac may be removed by home health tomorrow, 3.25. SPECIAL CARE INSTRUCTIONS: VERY IMPORTANT TO READ AND REVIEW A. There are a few signs you need to watch for after you are home. Call [facility] at [phone] if you experience any of the followin. Increased severe shoulder pain. Some pain is expected especially when you exercise. 2. Increased swelling in you shoulder or arm; pain or swelling in either upper extremity. 3. Any fluid drainage from the incision. 4. Shortness of breath or chest pain. B. Please call [facility] at [phone] if you have any questions or concerns about your operation or recovery. C. Call your physician if: 1. Temperature is greater than 101 degrees (F). 2. Pain is not relieved by prescribed pain medications. 3. Increase drainage or redness from incision. 4. Unanswered questions or concerns. FOLLOW UP VISIT: Please call [facility] at [phone] to schedule a follow up appointment with Dr. Alarcon or his PA in 12-14 days from your surgery date. Addtl Mechanical Estimator Provider Instructions: Your metoprolol dose was reduced to 12.5mg once daily (1/2 tablet). You will need to follow up with Urology in 1-2 weeks for a trial of void to remove your Jones catheter. Pending Studies at Discharge: No Stand-Alone Forms: My [facility] [employer], Smoking Cessation Medications and DC Order Prescriptions: New celecoxib [Celebrex] 200 mg capsule 200 mg PO Q12H Qty: 60 0RF aspirin 81 mg tablet,delayed release (DR/EC) 81 mg PO BID Qty: 60 0RF cefadroxil 500 mg capsule 500 mg PO Q12H Qty: 28 0RF oxycodone 5 mg tablet 5 mg PO Q4H PRN (Reason: pain) Qty: 20 0RF acetaminophen [Tylenol Extra Strength] 500 mg tablet 1,000 mg PO Q8H Qty: 90 0RF Continued atorvastatin 10 mg Tablet 10 mg PO HS tamsulosin 0.4 mg Capsule 0.4 mg PO HS lisinopril 40 mg Tablet 40 mg PO QAM fluticasone propion-salmeterol [Advair Diskus] 250-50 mcg/dose Blister With Device 1 inh INHALATION BID albuterol sulfate 90 mcg/actuation Hfa Aerosol Inhaler 1 inh INHALATION QID PRN (Reason: Wheezing) amlodipine 2.5 mg Tablet 2.5 mg PO HS Changed metoprolol succinate 25 mg Tablet Extended Release 24 Hr 12.5 mg PO QAM Qty: 15 0RF Held aspirin 81 mg Tablet,Delayed Release (Dr/Ec) 81 mg PO QAM Hold Instructions: Resume on 01/19/25. Discontinued acetaminophen [Tylenol Arthritis] 650 mg Tablet Extended Release 650 mg PO UD PRN (Reason: Pain) Admission Data Admit Date/Time: 12/20/24 13:15 Attending Provider: Mekhi Alarcon Admit Provider: Mekhi Alarcon Primary Care Provider: Thor Mireles Other Providers: Aaron Anderson [facility] Other Interventions: Discharge Summary Assessment (RN) Last Done: 12/21/24 15:58
== END 2024-12-22 14:35 | disposition home health service (06) ==
LOC: ASU 08:19 → 2N 08:19
DX: N40.0 Benign prostatic hyperplasia without lower urinary tract symptoms; E78.5 Hyperlipidemia, unspecified; M19.011 Primary osteoarthritis, right shoulder; J44.9 Chronic obstructive pulmonary disease, unspecified; Z87.891 Personal history of nicotine dependence; M12.811 Other specific arthropathies, not elsewhere classified, right shoulder; Z80.1 Family history of malignant neoplasm of trachea, bronchus and lung; Z79.899 Other long term (current) drug therapy; I49.3 Ventricular premature depolarization; I25.10 Atherosclerotic heart disease of native coronary artery without angina pectoris; Z79.82 Long term (current) use of aspirin; I10 Essential (primary) hypertension